=== PATIENT | female | born 1985 | race Caucasian/White ===

== ENCOUNTER 2016-06-11 11:06 | Day surgery (SDC) | payer OTHER ==
[2016-06-11] MEDS ORDERED: LR 1,000 ML IV ONE (12:04)
[2016-06-11] MEDS ORDERED: MIDAZOLAM 2 MG/2 ML VIAL ONE (12:16)
[2016-06-11] MEDS ORDERED: LIDOCAINE 2% 5 ML SDV ONE (12:21)
[2016-06-11] MEDS ORDERED: PROPOFOL/EMULSION 500 MG/50 ML BOTTLE IV ONE (12:21)
[2016-06-11] MEDS ORDERED: HYDROmorphONE/DILAUDID 2 MG/ML INJ ONE (12:42)
[2016-06-11] MEDS ORDERED: HYDROmorphONE/DILAUDID 1 MG/ML SYR ONE (13:05)
--- NOTE | 2016-06-11 13:44 | GPN ---
DATE OF PROCEDURE: 06/11/2016 PROCEDURE: Colonoscopy with biopsy. INDICATION: The patient is a 31-year-old female who presents with complaints of a change in bowel habits as well as lower quadrant abdominal pain. She presents for further evaluation. CONSENT: Risks, benefits, and alternatives of the procedure were discussed in great detail with the patient. Risks of infection, bleeding, perforation, and sedation were discussed. All questions were answered. Informed consent was obtained. MEDICATIONS: Propofol. Please see Anesthesiology record for details. ESTIMATED BLOOD LOSS: Insignificant. COLONOSCOPIC EVALUATION: A rectal exam was done and palpable masses were felt. The scope was introduced into the rectum and advanced to the cecum, where the ileocecal valve and appendiceal orifice were seen. The quality of the prep was good. The terminal ilium was intubated and multiple biopsies were taken of normal appearing mucosa.. The colon was normal in appearance. Random biopsies were taken throughout the colon to rule out microscopic colitis. IMPRESSION: 1. Normal terminal ileum status post biopsy. 2. Normal colon status post biopsy. RECOMMENDATION: 1. Follow up on biopsies. 2. Will increase dicyclomine to 20 mg p.o. b.i.d. 3. Follow up in the office in 6 weeks. /[id number]/MODL MTDD
[2016-06-11] MEDS ORDERED: diphenhydrAMINE 25 MG CAP PO ONE (14:00)
--- NOTE | 2016-06-11 14:03 | GPN ---
DATE OF PROCEDURE: 06/11/2016 PROCEDURE: Esophagogastroduodenoscopy with biopsy, dilation. INDICATION: The patient is a 31-year-old female who presents with complaints of dysphagia to solids as well as midepigastric abdominal pain. She presents for further evaluation. CONSENT: Risks, benefits, and alternatives of the procedure were discussed in great detail with the patient. Risks of infection, bleeding, perforation, and sedation were discussed. All questions answered. Informed consent obtained. MEDICATIONS: Propofol. Please see Anesthesia record for details. ESTIMATED BLOOD LOSS: Insignificant. ESOPHAGOGASTRODUODENOSCOPY EXAMINATION: The Olympus upper endoscope was introduced into the mouth and advanced to the esophagus. The proximal, mid, and distal esophagus were normal in appearance. Biopsies were taken of the mid esophagus to rule out eosinophilic esophagitis. The esophagus was empirically dilated with 15 to 18 mm and pulled through the esophagus on the way out. No obvious stricture was noted. The stomach was entered and closely examined, including retroflexed view of angularis, cardia and fundus. The patient was noted to have a small hiatal hernia. The mucosa in the antrum and the body was erythematous in a patchy distribution and biopsies were taken. The duodenal bulb and second portions were all normal in appearance. Biopsies were taken to rule out celiac sprue. IMPRESSION: 1. Empiric dilation of the esophagus performed.. 2. Biopsies of the mid esophagus taken to rule out eosinophilic esophagitis. 3. Small hiatal hernia. 4. Gastritis, status post biopsy. 5. Biopsies taken to rule out celiac sprue. PLAN: 1. Follow up on biopsy results. 2. PPI therapy twice a day. 3. Increase dicyclomine to 20 mg twice daily. 4. Await pathology results. 5. Proceed with colonoscopy. /[id number]/MODL MTDD
[2016-06-11] MEDS ORDERED: ONDANSETRON 4 MG/2 ML VIAL ONE (14:40)
== END 2016-06-11 15:10 | disposition home health service (06) ==
LOC: FSGY 11:06
PROVIDERS: ATTEND Internal Medicine Gastroenterology
PROC: 0D758ZZ Dilation of Esophagus, Via Natural or Artificial Opening Endoscopic (ICD-10-PCS; principal; 2016-06-11 12:45)
PROC: 0DB98ZX Excision of Duodenum, Via Natural or Artificial Opening Endoscopic, Diagnostic (ICD-10-PCS; principal; 2016-06-11 12:45)
PROC: 0DB28ZX Excision of Middle Esophagus, Via Natural or Artificial Opening Endoscopic, Diagnostic (ICD-10-PCS; principal; 2016-06-11 12:45)
PROC: 0DB68ZX Excision of Stomach, Via Natural or Artificial Opening Endoscopic, Diagnostic (ICD-10-PCS; principal; 2016-06-11 12:45)
PROC: 0DBB8ZX Excision of Ileum, Via Natural or Artificial Opening Endoscopic, Diagnostic (ICD-10-PCS; principal; 2016-06-11 12:45)
PROC: 0DBE8ZX Excision of Large Intestine, Via Natural or Artificial Opening Endoscopic, Diagnostic (ICD-10-PCS; principal; 2016-06-11 12:45)
DX: R10.13 Epigastric pain (principal); R13.10 Dysphagia, unspecified; R19.4 Change in bowel habit; K29.70 Gastritis, unspecified, without bleeding; K44.9 Diaphragmatic hernia without obstruction or gangrene
CPT/HCPCS: 43239; 43249; 45380; C1726; J1170; J2250; J2405; J2704